=== PATIENT | male | born 1970 | race Hispanic/Latino ===

== ENCOUNTER → 2024-05-13 | Outpatient (CLI) | payer OTHER ==
--- NOTE | 2024-05-13 15:56 | HMCIMG ---
LUMBAR SPINE RADIOGRAPHS - 2-3 VIEWS INDICATION: Chronic low back pain COMPARISON: None FINDINGS: AP, lateral, and coned-down lateral views. Normal lordotic curvature of the lumbar spine is maintained. Five nonrib-bearing lumbar vertebral bodies are noted. No acute fracture or subluxation identified. Vertebral body heights are well-maintained. Multilevel mild to moderate anterior endplate osteophytic spurring. Nominal disc height loss at the L5-S1 level. Mild facet disease along the mid to lower lumbar spine levels. IMPRESSION: Degenerative changes as described, without acute fracture deformity or subluxation.
== END | disposition home or self-care (01) ==
LOC: RAH 15:23
PROVIDERS: ATTEND Internal Medicine
DX: M25.78 Osteophyte, vertebrae (principal); M77.8 Other enthesopathies, not elsewhere classified; M54.30 Sciatica, unspecified side; R29.890 Loss of height
CPT/HCPCS: 72100